=== PATIENT | male | born 1960 | race Caucasian/White ===

== ENCOUNTER 2020-03-04 18:37 | Emergency (ER) | payer MEDICARE, SELFPAY ==
--- NOTE | ~2020-03-04 | XR_ITS ---
XR finger 2nd LT min 2V DATE: 03/04/2020 19:08 INDICATION: Ran tablesaw vertically through the distal second digit TECHNIQUE: 4 views COMPARISON: None FINDINGS: There is a comminuted fracture of the tuft of the distal phalanx of the second digit. There are some tuft fracture fragments and/or radial opaque foreign bodies extending distally lateral to t he tuft. There are osteoarthritic changes at the first carpometacarpal and included first through third metaca rpophalangeal and both interphalangeal joints of the second digit. IMPRESSION: Comminuted fracture of the tuft of the distal phalanx Polyarticular osteoarthritis Reviewed, dictated and finalized at location A.
[2020-03-04 18:51] VITALS: BP 157/105; PULSE 68; RESP 16; TEMP 37.1; O2SAT 99
--- NOTE | 2020-03-04 19:26 | ED.WOUNDLAC ---
HPI - Wound/Laceration General Chief Complaint: Wound/Laceration Stated Complaint: laceration left index finger Time Seen by Provider: 03/04/20 19:15 Source: patient and RN notes reviewed Mode of arrival: ambulatory Limitations: no limitations History of Present Illness HPI narrative: 59-year-old male presents with concern for laceration to the second digit of his left hand. Reports he sustained the injury using a saw prior to arrival. Patient has history of osteomyelitis, malignant neoplasm of esophagus, is currently on chemotherapy. Patient is not up-to-date on his tetanus vaccination Extremity Location: Left: hand Related Data Home Medications Medication Instructions Recorded Confirmed lorazepam 03/04/20 pembrolizumab [Keytruda] 200 mg IV ONCE 03/04/20 03/04/20 rivaroxaban [Xarelto] mg 03/04/20 Allergies Allergy/AdvReac Type Severity Reaction Status Date / Time morphine Allergy Intermediate Nausea Verified 05/10/19 10:20 Review of Systems Review of Systems: Narrative: CONSTITUTIONAL: Denies malaise, chills, sweats, or fever. SKIN: Reports laceration to the tip of the second digit of the left hand MUSCULOSKELETAL: Reports pain to the tip of the second digit of left hand All systems reviewed & are unremarkable except as noted in HPI and below PMFSH Past Medical History Medical History Osteomyelitis of low back Family History Family History (Updated 07/04/17 @ 13:10 by DOCTOR UNKNOWN) Mother Patient's mother is in good health Sibling Patient's sister is in good health Father Family history of lupus erythematosus Social History Social History Smoking status: Former smoker Second hand tobacco smoke exposure: No Smoking end date: 07/02/89 Alcohol intake: current Comments At time of signature, agree with nursing past medical, surgical, social and family history. There is no relevant family history pertinent to the presenting complaint Exam Narrative: Exam Narrative: GENERAL: Well-appearing, well-nourished, and in no acute distress. HEAD: Normocephalic EYES: PERRLA, conjunctivae clear ENT: Mucous membranes moist. NECK: Supple. CHEST: No respiratory distress. Speaks in full sentences. HEART: Regular rate and rhythm. EXTREMITIES: Second digit of left hand has grossly normal range of motion SKIN: Warm, dry. Laceration noted to the distal end of the second digit of the left hand, involving nailbed, wound appears to be through and through. NEURO: Alert and oriented x3. PSYCH: Normal mood and affect Course Course Emergency Course: Patient is aware of diagnosis, understands and agrees to treatment plan. Anticipatory guidance given. Patient agrees to follow-up as directed and is aware of reasons to seek care at the emergency department. Portions of this record may have been created with voice recognition software Vital Signs Vital signs: Vital Signs Temperature 98.8 F 03/04/20 18:51 Pulse Rate 68 03/04/20 18:51 Respiratory Rate 16 03/04/20 18:51 Blood Pressure 157/105 H 03/04/20 18:51 Pulse Oximetry 99 03/04/20 18:51 Temperature 98.8 F 03/04/20 18:51 Pulse Rate 68 03/04/20 18:51 Respiratory Rate 16 03/04/20 18:51 Blood Pressure 157/105 H 03/04/20 18:51 Pulse Oximetry 99 03/04/20 18:51 Reviewed. Patient has history of hypertension Transfer Transfered to: [place] Transportation: Other (Private vehicle) Transfer rationale: Open fracture, immunocompromise, complicated laceration Accepting physician: Dr. Haynes Transfer comments: Patient stable for transfer via private vehicle MDM - Wound/Laceration MDM Narrative Medical decision making narrative: This patient's injury requires further evaluation emergency department. Patient is stable for transfer private vehicle, patient is nontoxic-appearing. Critical Care Time Critical Care Time Critical Care Time: No Discharge Plan D
== END 2020-03-04 19:34 | disposition short-term general hospital (02) ==
PROVIDERS: Emergency Provider Nurse Practitioner; PCP Internal Medicine
DX: S62.631B Displaced fracture of distal phalanx of left index finger, initial encounter for open fracture (principal); W27.0XXA Contact with workbench tool, initial encounter; Z87.891 Personal history of nicotine dependence; M46.26 Osteomyelitis of vertebra, lumbar region; C15.9 Malignant neoplasm of esophagus, unspecified; I10 Essential (primary) hypertension; K21.9 Gastro-esophageal reflux disease without esophagitis
CPT/HCPCS: 29130; 73140; 99214; G0463

== ENCOUNTER 2020-03-04 19:55 | Emergency (ER) | payer MEDICARE, SELFPAY ==
[2020-03-04 20:02] VITALS: BP 178/103; PULSE 64; RESP 17; TEMP 36.8; O2SAT 99
[2020-03-04] MEDS: TETANUS,DIPHTHERIA,AC PERTUSSIS ADULT (0.5 ML) BOOSTRIX IM (20:25)
[2020-03-04] MEDS: ceFAZolin SODIUM 1 GM VIAL IM (20:26)
--- NOTE | 2020-03-04 20:41 | ED.UPPEXIN ---
HPI - Extremity Injury (Upper) General Chief Complaint: Extremity Injury, Upper <GRAEME Montana Last Filed: 03/04/20 21:05> Stated Complaint: laceration, possible open fracture <GRAEME Montana Last Filed: 03/04/20 21:05> Time Seen by Provider: 03/04/20 20:08 <GRAEME Montana Last Filed: 03/04/20 21:05> Source: patient, family and old records reviewed <GRAEME Montana Last Filed: 03/04/20 21:05> Mode of arrival: ambulatory <GRAEME Montana Last Filed: 03/04/20 21:05> Limitations: no limitations <GRAEME Montana Filed: 03/04/20 21:05> History of Present Illness HPI narrative: Patient is a 59-year-old male who presents to emergency department for evaluation of tablesaw injury to the distal tip of the left index finger that occurred earlier today went to urgent care was referred to emergency department patient is unsure as to tetanus status patient did have an x-ray revealing a tuft fracture patient notes moderate aching pain worse with touch improves with rest patient denies other injuries or complaints and on arrival is resting comfortably in the room in no distress <GRAEME Montana Last Filed: 03/04/20 21:05> Related Data Home Medications: Home Medications Medication Instructions Recorded Confirmed lorazepam 03/04/20 pembrolizumab [Keytruda] 200 mg IV ONCE 03/04/20 03/04/20 rivaroxaban [Xarelto] mg 03/04/20 <GRAEME Montana Last Filed: 03/04/20 21:05> Allergies/Adverse Reactions: Allergies Allergy/AdvReac Type Severity Reaction Status Date / Time morphine Allergy Intermediate Nausea Verified 05/10/19 10:20 <GRAEME Montana Last Filed: 03/04/20 21:05> Review of Systems Review of Systems: All systems reviewed & are unremarkable except as noted in HPI and below <GRAEME Montana Last Filed: 03/04/20 21:05> PMFSH Past Medical History Medical History: Medical History Osteomyelitis of low back <Channing Islas PA-C - Last Filed: 03/04/20 21:05> Family History Family History: Family History (Updated 07/04/17 @ 13:10 by DOCTOR UNKNOWN) Mother Patient's mother is in good health Sibling Patient's sister is in good health Father Family history of lupus erythematosus <Channing Islas PA-C - Last Filed: 03/04/20 21:05> Social History Social History: Social History Smoking status: Former smoker Second hand tobacco smoke exposure: No Smoking end date: 07/02/89 Alcohol intake: current <Channing Islas PA-C - Last Filed: 03/04/20 21:05> Exam Narrative: Exam Narrative: GENERAL: Well-appearing, well-nourished, and in no acute distress. HEAD: Normocephalic, atraumatic. EYES: PERRLA and EOMI. ENT: Nares clear, no rhinorrhea or epistaxis. Mucous membranes moist. EXTREMITIES: Normal range of motion. No edema. 1 cm vertical laceration of the distal tip of the left index finger extending into the distal third of the nailbed SKIN: Warm, dry, no rash. NEURO: No focal deficits. Alert and oriented x3. Neurovascularly intact PSYCH: Normal mood and affect. <Channing Islas PA-C - Last Filed: 03/04/20 21:05> Course Course Emergency Course: Patient in the room aware of discussion with hand surgeon closure in the emergency department agreeing to follow with hand surgery for reevaluation was given tetanus and antibiotic in the emergency department <Channing Islas PA-C - Last Filed: 03/04/20 21:05> Consultations Consultation #1: Discussed case with hand surgeon who will follow patient in clinic <Channing Islas PA-C - Last Filed: 03/04/20 21:05> Date: 03/04/20 <Channing Islas PA-C - Last Filed: 03/04/20 21:05> Time: 20:44 <Channing Islas PA-C - Last Filed: 03/04/20 21:05> Vital
[2020-03-04 21:15] VITALS: BP 175/102; PULSE 62; RESP 18; O2SAT 98
== END 2020-03-04 21:15 | disposition home or self-care (01) ==
PROVIDERS: Emergency Provider General Practice; PCP Internal Medicine
DX: S62.631B Displaced fracture of distal phalanx of left index finger, initial encounter for open fracture (principal); Z23 Encounter for immunization; Z87.891 Personal history of nicotine dependence; W31.2XXA Contact with powered woodworking and forming machines, initial encounter
CPT/HCPCS: 11760; 12001; 73140; 90471; 90715; 96372; 99283; A9270; J0690

== ENCOUNTER 2020-09-13 10:02 | Outpatient (CLI) | payer MEDICARE, SELFPAY | END 2020-09-13 10:03 | disposition home or self-care (01) | LOC: ANHCOVIDVC 10:02 | PROVIDERS: PCP Internal Medicine | DX: Z23 Encounter for immunization (principal) | CPT/HCPCS: 0001A; 91300 ==

== ENCOUNTER 2020-10-04 09:53 | Outpatient (CLI) | payer MEDICARE, SELFPAY | END 2020-10-04 09:54 | disposition home or self-care (01) | LOC: ANHCOVIDVC 09:53 | PROVIDERS: PCP Internal Medicine | DX: Z23 Encounter for immunization (principal) | CPT/HCPCS: 0002A; 91300 ==

== ENCOUNTER 2023-12-13 11:36 | Inpatient (IN) | payer MEDICARE, SELFPAY ==
--- NOTE | ~2023-12-13 | XR_ITS ---
Clinical Indication: Weakness AP and lateral views of the chest: Comparison: None Findings: Right-sided central venous line in place. Left-sided PICC line in place. The lungs are yessica r, without evidence of focal consolidation or pleural effusion. Cardiomediastinal silhouette is with in normal limits. Bones and soft tissues are unremarkable. Impression: Clear lungs. Support lines, as above. Reviewed, dictated and finalized at location M. Impression: Clear lungs. Support lines, as above.
--- NOTE | ~2023-12-13 | XR_ITS ---
XR abdomen/kub 1V Ordering provider: Christina Spears APRN History: . pain LLQ . Comparison: None. FINDINGS: BOWEL: Nonobstructive bowel gas pattern. ORGANOMEGALY: None. SIGNIFICANT PATHOLOGIC CALCIFICATIONS: Very tiny calcification in the right renal area most likely in the fecal material. OTHER: No free air is seen under the diaphragm. Postoperative changes in the lower spine. IVC filter is noted. Bilateral hip was discussed changes. IMPRESSION: NO ACUTE ABDOMINAL FINDINGS. Reviewed, dictated and finalized at location A.
[2023-12-13 11:38] VITALS: BP 100/80; PULSE 85; RESP 18; TEMP 36.4; O2SAT 100
--- NOTE | 2023-12-13 11:52 | ECG_ITS ---
Test Date: 2023-12-13 11:59:14 Measurements Intervals [place] Rate: 85 P: 67 ID: [id number] QRS: -16 QRSD: 76 T: 42 QT: 340 QTc: 406 Interpretive Statements SINUS RHYTHM No previous ECG available for comparison Electronically Signed On 12-15-2023 15:40:36 CDT by Carlitos Tapia M.D.
--- NOTE | 2023-12-13 13:27 | ED.GENADULT ---
HPI - General Adult General Chief complaint: Unspecified Stated complaint: malnutrition, deydration, dizziness Time Seen by Provider: 12/13/23 12:45 History of Present Illness HPI narrative: Patient is a 62-year-old male with history of esophageal cancer status post resection, metastasis to the colon status post resection after perforation, diagnose short gut syndrome here with concern for malnutrition and dehydration. Patient notes that all of his care has [facility] to [facility] Aside from his primary care doctor who is through our healthcare system. He was recently admitted to [facility] for dehydration and malnutrition. He was admitted from November 08 through the , was on TPN at that time as well as IV fluids. At discharge she was placed on hospice and he has been getting only 1 L of IV fluids throughout the day. The family and the patient had been having difficulty with him getting the proper TPN orders and having difficulty with coverage for lab work while he is on hospice. They note that since November 28 he has steadily declined each day because everything he takes by mouth quickly comes out in his stool. Yesterday they size primary care doctor who recommended that he could be admitted to the hospital, taken off of hospice and prescribed TPN. In addition to his generalized weakness and fatigue patient endorses some intermittent chronic abdominal pains thought to be due to his cancer. No recent change in this. No fever or chills. He is not currently receiving chemo or radiation. Related Data Home Medications Medication Instructions Recorded Confirmed rivaroxaban 20 mg tablet (Xarelto) mg 03/04/20 09/19/23 ascorbic acid (vitamin C) 1,000 mg 1 g PO DAILY 11/17/22 09/19/23 capsule cholecalciferol (vitamin D3) 50 50 mcg PO DAILY 11/17/22 09/19/23 mcg (2,000 unit) capsule ferrous sulfate 325 mg (65 mg 325 mg PO DAILY 11/17/22 09/19/23 iron) tablet amino acid 5 % in 15 % dextrose ea IV 12/12/23 intravenous solution (Clinimix) duloxetine 60 mg capsule,delayed 60 mg PO DAILY 12/12/23 release Allergies Allergy/AdvReac Type Severity Reaction Status Date / Time morphine Allergy Intermediate Nausea Verified 12/12/23 12:50 Review of Systems Review of Systems: All systems reviewed & are unremarkable except as noted in HPI and below PMFSH Past Medical History Medical History VEDA (acute kidney injury) DVT, bilateral lower limbs Essential (primary) hypertension Gastro-esophageal reflux disease without esophagitis Malignant neoplasm of esophagus mets to colon Osteomyelitis of low back Short gut syndrome Vitamin D deficiency Surgical History Surgical History History of colectomy (08/2023) History of esophagectomy (2017) History of ileostomy (08/2023) Family History Family History Mother Patient's mother is in good health Sibling Patient's sister is in good health Father Family history of lupus erythematosus Social History Social History Smoking packs per day: 1 Smoking cigarettes per day: 20.0 Years smoked: 3 Smoking pack-years: 3.00 Smoking status: Former smoker Second hand tobacco smoke exposure: No Smoking end date: 07/02/89 Alcohol intake: never Substance use: never Do You Feel Safe in your Home?: Yes Lack of Transportation: No Lack of Food: Never True Current Housing: I Have Housing Concerned About Future Housing: No Difficulty Paying Gas/Electric Bills: No Difficulty Paying for Meds: No Currently Unemployed: No Education: High School Diploma/GED Difficulty w/ Childcare or Family Care: No Spiritual care concerns: No Exam Narrative: GENERAL: Well-appearing, well-nouris
[2023-12-13] MEDS: LACTATED RINGERS 1,000 ML 999 ML IV CONT ×3 (13:46→17:48)
[2023-12-13 13:52] VITALS: O2SAT 98
[2023-12-13 13:53] LABS: Basophils Absolute Auto 0.1 K/mm3 (0.0-0.1); Basophils Percent Auto 0.5 % (0.2-1.2); Eosinophils Absolute Auto 0.1 K/mm3 (0-0.3); Hematocrit 42.7 % (42.0-52.0); Hemoglobin 14.9 g/dL (14.0-18.0); Immature Granulocyte Absolute 0.04 K/mm3 (0.00-0.031); Immature Granulocyte Percent A 0.3 % (0-0.5); Lymphocytes Absolute Auto 0.65 K/mm3 (0.9-3.2); Mean Corpuscular HGB Conc 34.9 g/dl (32-36); Mean Corpuscular Hemoglobin 30.7 pg (26-34); Mean Corpuscular Volume 87.9 fl (80-100); Mean Platelet Volume 11.4 fl (7.4-10.4); Monocytes Absolute Auto 0.9 K/mm3 (0.1-0.6); Neutrophils Absolute Auto 11.2 K/mm3 (1.3-6.7); Neutrophils Percent Auto 86.2 % (45.5-73.1); Platelet Count Result 167 k/mm3 (150-375); Red Blood Count 4.86 M/mm3 (4.6-6.20); Red Cell Distribution Width 17.8 % (11.5-14.5)
[2023-12-13 13:57] VITALS: BP 100/73; PULSE 81; RESP 17; TEMP 37.1; O2SAT 98
[2023-12-13 13:59] LABS: Appearance Urine Clear (Clear); Bacteria Urine None Seen /hpf; Bilirubin Urine Negative (Negative); Blood Urine Negative (Negative); Color Urine Yellow (Yellow); Glucose Urine UA Trace mg/dL (Negative); Ketones Urine Negative (Negative); Leukocyte Esterase Ur Negative LEU/UL (Negative); Nitrate Urine Negative (Negative); Protein Urine 1+ mg/dL (Negative); RBC Urine 0-2 /hpf (0-2); Specific Grav Ur 1.019 (1.001-1.035); Squamous Epithelial Cell Urine Occasional /hpf (Few); Urobilinogen Urine 0.2 mg/dL (<2.0); WBC Urine 0-5 /hpf (0-3); pH Urine 5.5 (5.0-9.0)
[2023-12-13 14:08] LABS: Add Urine Microscopic? YES
[2023-12-13 15:42] LABS: Alanine Aminotransferase 172 U/L (6-50); Albumin Level 3.7 g/dL (3.5-5.1); Alkaline Phosphatase 163 U/L (38-126); Anion Gap 7 mmol/L (4-12); Aspartate Amino Transferase 69 U/L (17-59); Bilirubin,Total 1.7 mg/dL (0.2-1.3); Blood Urea Nitrogen 60 mg/dL (9-20); Calcium 9.8 mg/dL (8.4-10.2); Carbon Dioxide 29 mmol/L (22-30); Chloride 92 mmol/L (98-107); Estimated CRCL calculation 35 ml/min; Estimated Glomerular Filt Rate 34; Glucose 84 mg/dL (65-110); Magnesium 2.3 mg/dL (1.6-2.3); Sodium 128 mmol/L (137-145)
--- NOTE | 2023-12-13 18:34 | PCCCNOTE ---
Addendum entered by Christina Han RN 12/13/23 19:11: Pt and spouse informed of hospice coming to have them sign revocation paperwork and they aggreed that is what they would like to do. Dr Truong informed of their decision to revoke hospice and would like to proceed with treatment. Original Note: Referral received for consult. Met with pt and spouse. They state he is current with [facility] hospice and palliative care. He has a line through which he is receiving TPN but the formula isn't what it was when he was in the hospital in [facility]. When he received that, he became much stronger an that's what they would like him to receive. On hospice, he does not get labwork done so they can't adjust the formula to his needs. He has a scan scheduled for ffirst part of December and they plan to have that and follow up with the oncologist for those results. Call placed to [facility] hospice and message left Madonna the palliative nurse. Hospice returned call and they confirmed he is on service with them. Informed them pt may be revoking hospice benefits. They will have someone come here to have pt sign. No return call from Madonna received.
--- NOTE | 2023-12-13 19:42 | PM.IMHP ---
H&P: HPI History of Present Illness Date/Time: 12/13/23 19:42 Chief Complaint: Malnutrition and Dehydration Narrative: 62 y/o M presents here with concerns for dehydration and malnutrition with PMH of esophageal cancer (s/p resection, 2018) with met/mass to mesentery (s/p resection with ileostomy, 08/2023, 200 cm of bowel proximal to stoma), short gut syndrome (secondary to resection), DVTs on Xarelto, bacteremia (08/2023), HTN (resolved with ileostomy), osteomyelitis L5, and severe chronic malnutrition. The patient presents here from home for further evaluation of severe/chronic malnutrition and concern for current dehydration. Patient has history of metastatic esophageal cancer s/p esophagectomy in 2017 and mesenteric mass (esophageal met) that resulted in a small bowel perforation in August of 2023 with ileostomy creation. Subsequently developed short-gut syndrome. Most recently admitted from 11/13-11/18 at [facility] for increased ileostomy output, dehydration, and generalized weakness. Per discharge summary, patient was sent home on hospice with TPN and telephonic nurse case manager/hospice team was meant to arrange for TPN outpatient. Per PCP note on 12/12/2023, he has been receiving 1L of TPN daily but felt he was continuing to become more dehydrated, had recurrent VEDA, and fatigue was worsening. Per the patient and his family, they have been having difficulty obtaining the proper TPN order is and obtaining lab work outpatient due to hospice status. The patient reports the difficulty with the TPN is finding a provider to continue to write the orders for the TPN. Recently requested an increase in caloric total for TPN due to continuing to lose weight, TPN company would not increase the amount unless blood work was performed once weekly, but hospice will not cover lab work and reported he would have to pay for it [id number]. Patient still trying to eat 3 meals per day. Patient is no longer receiving chemo or radiation, last treatment in October of 2022. The patient reports his goal is get enough calories to be able to enjoy activities at home and do normal ADLs. No blood in output and varies in color dependent on diet. Initial VS at presentation: 97.6? F, HR 85, RR 18, 100/80, and 100% on RA. ED workup showed: WBC 13, sodium 128, creatinine 2.0 and GFR 34, total bilirubin/AST/ALT mildly elevated, and UA not consistent with UTI. CXR showed clear lungs and support lines visualized, see report. Review of Systems Review of Systems: All systems reviewed & are unremarkable except as noted in HPI and below PMFSH Past Medical History Medical History (Updated 12/13/23 @ 22:59 by Caitlin Womack APRN) VEDA (acute kidney injury) DVT, bilateral lower limbs Essential (primary) hypertension Gastro-esophageal reflux disease without esophagitis Malignant neoplasm of esophagus mets to colon Osteomyelitis of low back Short gut syndrome Small bowel perforation Vitamin D deficiency Surgical History Surgical History (Updated 12/13/23 @ 23:49 by Caitlin Womack APRN) History of back surgery History of esophagectomy (2017) History of ileostomy (08/2023) Family History Family History Mother Patient's mother is in good health Sibling Patient's sister is in good health Father Family history of lupus erythematosus Social History Social History Smoking packs per day: 1 Smoking cigarettes per day: 20.0 Years smoked: 3 Smoking pack-years: 3.00 Smoking status: Former smoker Second hand tobacco smoke exposure: No Smoking end date: 07/02/89 Alcohol intake: never Substance use: never Do You Feel Safe in your Home?: Yes Lack of Transportation: No Lack of Food: Never True Current Housing: I Have Housing Concerned About Future Housing: No Difficulty Paying Gas/Electric Bills: No Difficulty Paying for Meds:
[2023-12-13 20:35] VITALS: BP 116/89; PULSE 99; RESP 18; O2SAT 100
[2023-12-13 21:01] VITALS: PULSE 78; RESP 16; O2SAT 100
[2023-12-13 21:05] VITALS: BP 140/84; PULSE 78; RESP 16; TEMP 36.1; O2SAT 100; BMI 22.4
[2023-12-13] MEDS: AMINO ACIDS 5%/D15W/E-LYTES/CA 2,000 ML with MULTIVITAMINS-12 INJ VIAL 1 2.5 ML, MULTIV... 40 ML IV CONT (22:07)
[2023-12-13 23:28] LABS: Glucose Point of Care 130 mg/dl (65-105)
[2023-12-14 05:17] VITALS: BP 109/76; PULSE 66; RESP 18; TEMP 36.2; O2SAT 100
[2023-12-14 05:38] LABS: Glucose Point of Care 109 mg/dl (65-105)
--- NOTE | 2023-12-14 07:29 | PM.IMPN ---
Progress Note: A&P Assessment and Plan (1) Severe protein-calorie malnutrition: Code(s): E43 - Unspecified severe protein-calorie malnutrition Status: Acute Assessment and Plan: - consult to gas producer - albumin 3.7 - continue TPN: previously on Clinimix 2L 11/13 w/electrolytes + 250 mL of 20% ILE, run over 24 hrs. will continue similar. - glucose monitoring q.6 12/13: Increase TPN to 60 mils per hour per Nutrition. Added lipids. Blood sugars reviewed. I spoke with Dr Cason who is willing to write for outpatient TPN IF PCP is unable to follow. 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 Qualified Code(s): K90.822 - Short bowel syndrome without colon in continuity Code(s): K90.829 - Short bowel syndrome, unspecified Status: Acute Assessment and Plan: - dehydration secondary to short gut syndrome - given 3 L of LR - monitor K and Mag - continue Lomotil, Imodium, and tincture of opium (previously cost prohibitive to continue outpatient) to reduce high output, previously tolerated well at [facility] d/c'd - patient reports they have trialed this 2-3 times and it did not help - consider GI consult and octreotide if output increases - monitor I&Os 12/13: 900 ml of stool output in the last 24 hours. Blood pressures are stable. Sodium is up trending, K+ 3.7, Mag 2.3. LLQ abdominal pain today. KUB ordered. (3) VEDA (acute kidney injury): Code(s): N17.9 - Acute kidney failure, unspecified Status: Acute Assessment and Plan: - creatinine 2.0 and GFR 34 - previously 0.9 and GFR 106 in 2021 - recent VEDA 11/14/23-11/19/23, peak at 2.8 and discharged at 1.0 - IV fluids, treat underlying short gut/high output from ileostomy - trend renal function - trend electrolytes, correct as needed 12/13: Cr improving with current treatment. (4) Malignant neoplasm of esophagus: Qualifiers: Malignant neoplasm of esophagus location: unspecified location Qualified Code(s): C15.9 - Malignant neoplasm of esophagus, unspecified Code(s): C15.9 - Malignant neoplasm of esophagus, unspecified Status: Acute Assessment and Plan: - on hospice, may be revoked due to current admission - care coordination consult for arrangement of TPN outpatient/current options - last chemo/radiation in October of 2022 - received Oncology care at [facility] Plan Patient here with recurrent dehydration, malnutrition, and VEDA. Recently admitted at [facility] from 11/13 to 11/18 for same. TPN supposed to be coordinated with hospice outpatient, having difficulty increasing the calories per back due to requiring lab work weekly. Patient amendable to being on palliative care and not on hospice care. Diet: TPN GI Prophylaxis: Not currently indicated DVT Prophylaxis: continue Xarelto Lines: Power Port to R chest, PICC line to LUE Code Status: DNR Subjective Date/time seen: 12/14/23 07:29 Interval history: 62 y/o M presents here with concerns for dehydration and malnutrition with PMH of esophageal cancer (s/p resection, 2017) with met/mass to mesentery (s/p resection with ileostomy, 08/2023, 200 cm of bowel proximal to stoma), short gut syndrome (secondary to resection), DVTs on Xarelto, bacteremia (08/2023), HTN (resolved with ileostomy), osteomyelitis L5, and severe chronic malnutrition. 12/13: Very pleasant gentleman here with dehydration. Labs are improving with hydration. Care coordination is looking for a provider to sign for his TPN at discharge. Patient reports no complaints to be but nursing contacted me after seeing him and he is saying he is having some LLQ abdominal pain. Will check a KUB. He has metastatic cancer and I suspect this is the source of his pain. Will add oxycodone for pain. Review of Systems Review of Systems: All systems reviewed & are unremarkable except as noted in HPI and below
[2023-12-14 09:20] VITALS: O2SAT 98
[2023-12-14] MEDS: FERROUS SULFATE 325 MG TABLET DR PO (09:52)
[2023-12-14] MEDS: CHOLECALCIFEROL 1,000 UNITS TABLET 2000 UNITS PO (09:52)
[2023-12-14] MEDS: ASCORBIC ACID 500 MG TABLET 1000 MG PO (09:52)
[2023-12-14] MEDS: DULoxetine HCL 60 MG CAPSULE.DR PO (09:52)
[2023-12-14 10:42] LABS: Magnesium 2.3 mg/dL (1.6-2.3)
[2023-12-14 10:42] LABS: Alanine Aminotransferase 148 U/L (6-50); Albumin Level 3.4 g/dL (3.5-5.1); Alkaline Phosphatase 124 U/L (38-126); Anion Gap 6 mmol/L (4-12); Aspartate Amino Transferase 59 U/L (17-59); Bilirubin,Total 1.6 mg/dL (0.2-1.3); Blood Urea Nitrogen 55 mg/dL (9-20); Calcium 9.6 mg/dL (8.4-10.2); Carbon Dioxide 30 mmol/L (22-30); Chloride 94 mmol/L (98-107); Estimated CRCL calculation 43 ml/min; Estimated Glomerular Filt Rate 41; Glucose 142 mg/dL (65-110); Potassium 3.7 mmol/L (3.4-5.0); Sodium 130 mmol/L (137-145)
[2023-12-14 11:11] LABS: Hematocrit 38.5 % (42.0-52.0); Hemoglobin 13.3 g/dL (14.0-18.0); Mean Corpuscular HGB Conc 34.5 g/dl (32-36); Mean Corpuscular Hemoglobin 30.7 pg (26-34); Mean Corpuscular Volume 88.9 fl (80-100); Mean Platelet Volume 10.7 fl (7.4-10.4); Platelet Count Result 173 k/mm3 (150-375); Red Blood Count 4.33 M/mm3 (4.6-6.20); White Blood Count 11.4 K/mm3 (4.5-10.0)
[2023-12-14 11:54] VITALS: BMI 22.4
[2023-12-14] MEDS: ACETAMINOPHEN 500 MG TABLET 1000 MG PO ×3 (12:04→23:56)
[2023-12-14] MEDS: FAT EMULSIONS IV 20% 250 ML 20.83 ML IVPB (13:14)
[2023-12-14 14:00] VITALS: BP 101/74; PULSE 100; RESP 18; TEMP 36.6; O2SAT 100
[2023-12-14] MEDS: RIVAROXABAN 20 MG TABLET PO (17:35)
[2023-12-14 22:00] VITALS: BP 100/69; PULSE 87; RESP 20; TEMP 36.8; O2SAT 100
[2023-12-14 22:20] LABS: Glucose Point of Care 172 mg/dl (65-105)
[2023-12-15] MEDS: ACETAMINOPHEN 500 MG TABLET 1000 MG PO ×2 (05:50→11:20)
[2023-12-15] MEDS: AMINO ACIDS 5%/D15W/E-LYTES/CA 2,000 ML with MULTIVITAMINS-12 INJ VIAL 1 2.5 ML, MULTIV... 40 ML IV CONT (05:50)
[2023-12-15 06:00] VITALS: BP 94/72; PULSE 74; RESP 16; TEMP 36.9; O2SAT 100
[2023-12-15 07:06] LABS: Alanine Aminotransferase 112 U/L (6-50); Albumin Level 3.3 g/dL (3.5-5.1); Alkaline Phosphatase 108 U/L (38-126); Anion Gap 6 mmol/L (4-12); Aspartate Amino Transferase 36 U/L (17-59); Bilirubin,Total 1.8 mg/dL (0.2-1.3); Blood Urea Nitrogen 51 mg/dL (9-20); Calcium 9.5 mg/dL (8.4-10.2); Carbon Dioxide 32 mmol/L (22-30); Chloride 92 mmol/L (98-107); Estimated CRCL calculation 41 ml/min; Estimated Glomerular Filt Rate 38; Glucose 106 mg/dL (65-110); Magnesium 2.1 mg/dL (1.6-2.3); Potassium 3.8 mmol/L (3.4-5.0); Sodium 130 mmol/L (137-145)
[2023-12-15 07:12] LABS: Hematocrit 37.6 % (42.0-52.0); Hemoglobin 13.1 g/dL (14.0-18.0); Mean Corpuscular HGB Conc 34.8 g/dl (32-36); Mean Corpuscular Hemoglobin 31.3 pg (26-34); Mean Corpuscular Volume 89.7 fl (80-100); Mean Platelet Volume 10.8 fl (7.4-10.4); Platelet Count Result 152 k/mm3 (150-375); Red Blood Count 4.19 M/mm3 (4.6-6.20); Red Cell Distribution Width 16.9 % (11.5-14.5); White Blood Count 13.6 K/mm3 (4.5-10.0)
[2023-12-15 07:42] LABS: Glucose Point of Care 116 mg/dl (65-105)
--- NOTE | 2023-12-15 07:54 | PM.IMPN ---
Progress Note: A&P Assessment and Plan (1) Severe protein-calorie malnutrition: Code(s): E43 - Unspecified severe protein-calorie malnutrition Status: Acute Assessment and Plan: - consult to production metal sprayer - albumin 3.7 - continue TPN: previously on Clinimix 2L 11/13 w/electrolytes + 250 mL of 20% ILE, run over 24 hrs. will continue similar. - glucose monitoring q.6 12/13: Increase TPN to 60 mils per hour per Nutrition. Added lipids. Blood sugars reviewed. I spoke with Dr Cason who is willing to write for outpatient TPN IF PCP is unable to follow. 12/14: Blood glucose reviewed. Added low dose sliding scale insulin Q 6 hours with Q 6 hour accu checks. 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 Qualified Code(s): K90.822 - Short bowel syndrome without colon in continuity Code(s): K90.829 - Short bowel syndrome, unspecified Status: Acute Assessment and Plan: - dehydration secondary to short gut syndrome - given 3 L of LR - monitor K and Mag - continue Lomotil, Imodium, and tincture of opium (previously cost prohibitive to continue outpatient) to reduce high output, previously tolerated well at [facility] d/c'd - patient reports they have trialed this 2-3 times and it did not help - consider GI consult and octreotide if output increases - monitor I&Os 12/13: 900 ml of stool output in the last 24 hours. Blood pressures are stable. Sodium is up trending, K+ 3.7, Mag 2.3. LLQ abdominal pain today. KUB ordered. 12/14: No output charted. Electrolytes reviewed. Na 130+, K+ 3.8, Mg 2.1. Blood pressures are low this morning 90/60's with increase in CR and increase in liver enzymes. Patient has short gut syndrome and cannot maintain his fluid and nutritional status with oral intake or even enteral nutrition alone. He requires IV fluids and TPN for nutritional and fluid needs. Unfortunately, given his cancer he has a poor prognosis with likely months to live. He will require TPN, fluids for the indefinite future for palliative nutrition. (3) VEDA (acute kidney injury): Code(s): N17.9 - Acute kidney failure, unspecified Status: Acute Assessment and Plan: - creatinine 2.0 and GFR 34 - previously 0.9 and GFR 106 in 2021 - recent VEDA 11/14/23-11/19/23, peak at 2.8 and discharged at 1.0 - IV fluids, treat underlying short gut/high output from ileostomy - trend renal function - trend electrolytes, correct as needed 12/13: Cr improving with current treatment. 12/14: TPN was running at 60 ml per hour. Blood pressures are decreased and his Cr is increasing. He will need an increase in fluid rate. I have bolused 1 L NS now and started him on NS at 40 ml per hour to make for a total of 60 ml per hour. (4) Malignant neoplasm of esophagus: Qualifiers: Malignant neoplasm of esophagus location: unspecified location Qualified Code(s): C15.9 - Malignant neoplasm of esophagus, unspecified Code(s): C15.9 - Malignant neoplasm of esophagus, unspecified Status: Acute Assessment and Plan: - on hospice, may be revoked due to current admission - care coordination consult for arrangement of TPN outpatient/current options - last chemo/radiation in October of 2022 - received Oncology care at [facility] 12/14: Added oxycodone for pain control. C/o of abdominal pain yesterday but no acute findings on exam or on KUB. Plan Patient here with recurrent dehydration, malnutrition, and VEDA. Recently admitted at [facility] from 11/13 to 11/18 for same. TPN supposed to be coordinated with hospice outpatient, having difficulty increasing the calories per back due to requiring lab work weekly. Patient amendable to being on palliative care and not on hospice care. Diet: TPN GI Prophylaxis: Not currently indicated DVT Prophylaxis: continue Xarelto--also has an IVC filter Lines: Power
[2023-12-15 08:47] LABS: Basophils Percent Auto 0.2 % (0.2-1.2); Eosinophils Absolute Auto 0.1 K/mm3 (0-0.3); Eosinophils Percent Auto 0.9 % (0-4.4); Immature Granulocyte Absolute 0.04 K/mm3 (0.00-0.031); Immature Granulocyte Percent A 0.3 % (0-0.5); Lymphocytes Percent Auto 4.4 % (18.3-44.2); Monocytes Absolute Auto 0.8 K/mm3 (0.1-0.6); Neutrophils Absolute Auto 11.9 K/mm3 (1.3-6.7); Neutrophils Percent Auto 88.2 % (45.5-73.1)
[2023-12-15] MEDS: DULoxetine HCL 60 MG CAPSULE.DR PO (10:47)
[2023-12-15] MEDS: ASCORBIC ACID 500 MG TABLET 1000 MG PO (10:47)
[2023-12-15] MEDS: CHOLECALCIFEROL 1,000 UNITS TABLET 2000 UNITS PO (10:48)
[2023-12-15] MEDS: SODIUM CHLORIDE 0.9% IV 1,000 ML 999 ML IV CONT (10:49)
[2023-12-15] MEDS: FERROUS SULFATE 325 MG TABLET DR PO (10:54)
[2023-12-15] MEDS: FAT EMULSIONS IV 20% 250 ML 20.83 ML IVPB (10:56)
[2023-12-15 10:59] VITALS: BP 102/76
[2023-12-15 11:33] LABS: Glucose Point of Care 119 mg/dl (65-105)
[2023-12-15] MEDS: SODIUM CHLORIDE 0.9% IV 1,000 ML 40 ML IV CONT (12:06)
[2023-12-15 14:00] VITALS: BP 104/67; PULSE 78; RESP 20; TEMP 36.4; O2SAT 100
[2023-12-15] MEDS: CENTRAL LINE FLUSH 10 ML IV PUSH ×3 (14:20→14:21)
[2023-12-15] MEDS: oxyCODONE HCL (*CRX) 5 MG TAB IR PO (16:00)
[2023-12-15 16:35] LABS: Glucose Point of Care 118 mg/dl (65-105)
[2023-12-15] MEDS: RIVAROXABAN 20 MG TABLET PO (17:31)
[2023-12-15 20:00] VITALS: PULSE 78; RESP 20; O2SAT 100
[2023-12-15] MEDS: oxyCODONE HCL (*CRX) 5 MG TAB IR 10 MG PO (20:18)
[2023-12-15 21:17] VITALS: BP 116/74; PULSE 86; RESP 20; TEMP 36.3; O2SAT 100
[2023-12-15 23:13] LABS: Glucose Point of Care 112 mg/dl (65-105)
[2023-12-16] MEDS: oxyCODONE HCL (*CRX) 5 MG TAB IR 10 MG PO ×3 (00:23→20:23)
[2023-12-16 05:09] LABS: Hematocrit 34.4 % (42.0-52.0); Hemoglobin 11.6 g/dL (14.0-18.0); Immature Platelet Fraction Pct 6.3 % (0.9-11.2); Mean Corpuscular HGB Conc 33.7 g/dl (32-36); Mean Corpuscular Hemoglobin 30.3 pg (26-34); Mean Corpuscular Volume 89.8 fl (80-100); Mean Platelet Volume 10.8 fl (7.4-10.4); Platelet Count Result 135 k/mm3 (150-375); Red Blood Count 3.83 M/mm3 (4.6-6.20); Red Cell Distribution Width 16.9 % (11.5-14.5); White Blood Count 11.5 K/mm3 (4.5-10.0)
[2023-12-16] MEDS: AMINO ACIDS 5%/D15W/E-LYTES/CA 2,000 ML with MULTIVITAMINS-12 INJ VIAL 1 2.5 ML, MULTIV... 40 ML IV CONT ×2 (05:30→22:05)
[2023-12-16 05:39] LABS: Alanine Aminotransferase 78 U/L (6-50); Alkaline Phosphatase 88 U/L (38-126); Anion Gap 4 mmol/L (4-12); Aspartate Amino Transferase 26 U/L (17-59); Bilirubin,Total 1.5 mg/dL (0.2-1.3); Blood Urea Nitrogen 44 mg/dL (9-20); Calcium 9.2 mg/dL (8.4-10.2); Carbon Dioxide 30 mmol/L (22-30); Chloride 96 mmol/L (98-107); Estimated CRCL calculation 52 ml/min; Estimated Glomerular Filt Rate 51; Glucose 96 mg/dL (65-110); Magnesium 2.1 mg/dL (1.6-2.3); Potassium 3.8 mmol/L (3.4-5.0); Sodium 130 mmol/L (137-145)
[2023-12-16] MEDS: CENTRAL LINE FLUSH 10 ML IV PUSH ×6 (05:57→20:23)
[2023-12-16 06:00] VITALS: BP 95/60; PULSE 63; RESP 20; TEMP 36.1; O2SAT 100
[2023-12-16 06:15] LABS: Glucose Point of Care 102 mg/dl (65-105)
--- NOTE | 2023-12-16 07:50 | P.PNIM_ITS ---
Progress Note: A&P Assessment and Plan (1) Severe protein-calorie malnutrition: Code(s): E43 - Unspecified severe protein-calorie malnutrition Status: Acute Assessment and Plan: - consult to florist designer - albumin 3.7 - continue TPN: previously on Clinimix 2L 11/13 w/electrolytes + 250 mL of 20% ILE, run over 24 hrs. will continue similar. - glucose monitoring q.6 12/13: Increase TPN to 60 mils per hour per Nutrition. Added lipids. Blood sugars reviewed. I spoke with Dr Cason who is willing to write for outpatient TPN IF PCP is unable to follow. 12/14: Blood glucose reviewed. Added low dose sliding scale insulin Q 6 hours with Q 6 hour accu checks. Hypoglycemia protocol ordered 12/15: Blood glucose reviewed, well controlled. 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 d/c'd - patient reports they have trialed this 2-3 times and it did not help - consider GI consult and octreotide if output increases - monitor I&Os 12/13: 900 ml of stool output in the last 24 hours. Blood pressures are stable. Sodium is up trending, K+ 3.7, Mag 2.3. LLQ abdominal pain today. KUB ordered. 12/14: No output charted. Electrolytes reviewed. Na 130+, K+ 3.8, Mg 2.1. Blood pressures are low this morning 90/60's with increase in CR and increase in liver enzymes. Patient has short gut syndrome and cannot maintain his fluid and nutritional status with oral intake or even enteral nutrition alone. He requires IV fluids and TPN for nutritional and fluid needs. Unfortunately, given his cancer he has a poor prognosis with likely months to live. He will require TPN, fluids for the indefinite future for palliative nutrition. 12/15: 2 L intake, output 1200 mils, net positive 866 ml. Renal function improving, liver enzymes down trending. (3) VEDA (acute kidney injury): Code(s): N17.9 - Acute kidney failure, unspecified Status: Acute Assessment and Plan: - creatinine 2.0 and GFR 34 - previously 0.9 and GFR 106 in 2021 - recent VEDA 11/14/23-11/19/23, peak at 2.8 and discharged at 1.0 - IV fluids, treat underlying short gut/high output from ileostomy - trend renal function - trend electrolytes, correct as needed 12/13: Cr improving with current treatment. 12/14: TPN was running at 60 ml per hour. Blood pressures are decreased and his Cr is increasing. He will need an increase in fluid rate. I have bolused 1 L NS now and started him on NS at 40 ml per hour to make for a total of 60 ml per hour. 12/15: Renal function improving after addition of IV fluids. Patient will likely require IV fluids at discharge in addition to his TPN to meet fluid needs. (4) Malignant neoplasm of esophagus: Qualifiers: Malignant neoplasm of esophagus location: unspecified location Qualified Code(s): C15.9 - Malignant neoplasm of esophagus, unspecified Code(s): C15.9 - Malignant neoplasm of esophagus, unspecified Status: Acute Assessment and Plan: - on hospice, may be revoked due to current admission - care coordination consult for arrangement of TPN outpatient/current options
[2023-12-16 10:05] VITALS: BP 107/79; PULSE 76
[2023-12-16] MEDS: FERROUS SULFATE 325 MG TABLET DR PO (10:10)
[2023-12-16] MEDS: CHOLECALCIFEROL 1,000 UNITS TABLET 2000 UNITS PO (10:11)
[2023-12-16] MEDS: oxyCODONE HCL (*CRX) 5 MG TAB IR PO ×2 (10:11→17:18)
[2023-12-16] MEDS: DULoxetine HCL 60 MG CAPSULE.DR PO (10:11)
[2023-12-16] MEDS: ASCORBIC ACID 500 MG TABLET 1000 MG PO (10:11)
[2023-12-16] MEDS: FAT EMULSIONS IV 20% 250 ML 20.83 ML IVPB (10:12)
[2023-12-16 12:14] LABS: Glucose Point of Care 129 mg/dl (65-105)
[2023-12-16] MEDS: SODIUM CHLORIDE 0.9% IV 1,000 ML 40 ML IV CONT (13:44)
[2023-12-16 14:00] VITALS: BP 102/67; PULSE 65; RESP 16; TEMP 36.2; O2SAT 100
[2023-12-16] MEDS: RIVAROXABAN 20 MG TABLET PO (17:18)
[2023-12-16 18:33] LABS: Glucose Point of Care 143 mg/dl (65-105)
[2023-12-16 20:00] VITALS: PULSE 88; RESP 18; O2SAT 100
[2023-12-16 20:53] VITALS: BP 109/70; PULSE 88; RESP 18; TEMP 36.5; O2SAT 100
[2023-12-16 22:52] LABS: Glucose Point of Care 132 mg/dl (65-105)
[2023-12-16 22:52] LABS: Glucose Point of Care 157 mg/dl (65-105)
[2023-12-17] MEDS: oxyCODONE HCL (*CRX) 5 MG TAB IR 10 MG PO ×4 (00:30→22:18)
[2023-12-17 05:13] LABS: Glucose Point of Care 110 mg/dl (65-105)
[2023-12-17 05:34] LABS: Hematocrit 32.7 % (42.0-52.0); Hemoglobin 11.2 g/dL (14.0-18.0); Immature Platelet Fraction Pct 5.9 % (0.9-11.2); Mean Corpuscular HGB Conc 34.3 g/dl (32-36); Mean Corpuscular Hemoglobin 30.9 pg (26-34); Mean Corpuscular Volume 90.3 fl (80-100); Mean Platelet Volume 10.6 fl (7.4-10.4); Platelet Count Result 133 k/mm3 (150-375); Red Blood Count 3.62 M/mm3 (4.6-6.20); Red Cell Distribution Width 16.9 % (11.5-14.5)
[2023-12-17 05:35] LABS: Alanine Aminotransferase 64 U/L (6-50); Albumin Level 2.9 g/dL (3.5-5.1); Alkaline Phosphatase 84 U/L (38-126); Anion Gap 4 mmol/L (4-12); Aspartate Amino Transferase 25 U/L (17-59); Bilirubin,Total 1.5 mg/dL (0.2-1.3); Blood Urea Nitrogen 36 mg/dL (9-20); Calcium 9.2 mg/dL (8.4-10.2); Carbon Dioxide 29 mmol/L (22-30); Chloride 99 mmol/L (98-107); Estimated CRCL calculation 60 ml/min; Estimated Glomerular Filt Rate > 60; Glucose 110 mg/dL (65-110); Potassium 3.9 mmol/L (3.4-5.0); Sodium 132 mmol/L (137-145)
[2023-12-17] MEDS: CENTRAL LINE FLUSH 10 ML IV PUSH ×4 (05:44→13:39)
[2023-12-17 06:00] VITALS: BP 95/58; PULSE 61; RESP 20; TEMP 36.1; O2SAT 100
[2023-12-17] MEDS: oxyCODONE HCL (*CRX) 5 MG TAB IR PO (08:32)
[2023-12-17] MEDS: FAT EMULSIONS IV 20% 250 ML 20.83 ML IVPB (08:32)
[2023-12-17] MEDS: CHOLECALCIFEROL 1,000 UNITS TABLET 2000 UNITS PO (08:33)
[2023-12-17] MEDS: DULoxetine HCL 60 MG CAPSULE.DR PO (08:33)
[2023-12-17] MEDS: ASCORBIC ACID 500 MG TABLET 1000 MG PO (08:33)
[2023-12-17] MEDS: FERROUS SULFATE 325 MG TABLET DR PO (08:33)
[2023-12-17 11:35] LABS: Glucose Point of Care 129 mg/dl (65-105)
[2023-12-17 14:00] VITALS: BP 101/52; PULSE 78; RESP 18; TEMP 36.5; O2SAT 99
--- NOTE | 2023-12-17 14:08 | PM.IMPN ---
Progress Note: A&P Assessment and Plan (1) Severe protein-calorie malnutrition: Code(s): E43 - Unspecified severe protein-calorie malnutrition Status: Acute Assessment and Plan: - consult to high school vice principal - albumin 3.7 - continue TPN: previously on Clinimix 2L 11/13 w/electrolytes + 250 mL of 20% ILE, run over 24 hrs. will continue similar. - glucose monitoring q.6 12/13: Increase TPN to 60 mils per hour per Nutrition. Added lipids. Blood sugars reviewed. I spoke with Dr Cason who is willing to write for outpatient TPN IF PCP is unable to follow. 12/14: Blood glucose reviewed. Added low dose sliding scale insulin Q 6 hours with Q 6 hour accu checks. Hypoglycemia protocol ordered 12/15: Blood glucose reviewed, well controlled. 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 Qualified Code(s): K90.822 - Short bowel syndrome without colon in continuity Code(s): K90.829 - Short bowel syndrome, unspecified Status: Acute Assessment and Plan: - dehydration secondary to short gut syndrome - given 3 L of LR - monitor K and Mag - continue Lomotil, Imodium, and tincture of opium (previously cost prohibitive to continue outpatient) to reduce high output, previously tolerated well at [facility] d/c'd - patient reports they have trialed this 2-3 times and it did not help - consider GI consult and octreotide if output increases - monitor I&Os 12/13: 900 ml of stool output in the last 24 hours. Blood pressures are stable. Sodium is up trending, K+ 3.7, Mag 2.3. LLQ abdominal pain today. KUB ordered. 12/14: No output charted. Electrolytes reviewed. Na 130+, K+ 3.8, Mg 2.1. Blood pressures are low this morning 90/60's with increase in CR and increase in liver enzymes. Patient has short gut syndrome and cannot maintain his fluid and nutritional status with oral intake or even enteral nutrition alone. He requires IV fluids and TPN for nutritional and fluid needs. Unfortunately, given his cancer he has a poor prognosis with likely months to live. He will require TPN, fluids for the indefinite future for palliative nutrition. 12/15: 2 L intake, output 1200 mils, net positive 866 ml. Renal function improving, liver enzymes down trending. (3) VEDA (acute kidney injury): Code(s): N17.9 - Acute kidney failure, unspecified Status: Acute Assessment and Plan: - creatinine 2.0 and GFR 34 - previously 0.9 and GFR 106 in 2021 - recent VEDA 11/14/23-11/19/23, peak at 2.8 and discharged at 1.0 - IV fluids, treat underlying short gut/high output from ileostomy - trend renal function - trend electrolytes, correct as needed 12/13: Cr improving with current treatment. 12/14: TPN was running at 60 ml per hour. Blood pressures are decreased and his Cr is increasing. He will need an increase in fluid rate. I have bolused 1 L NS now and started him on NS at 40 ml per hour to make for a total of 60 ml per hour. 12/15: Renal function improving after addition of IV fluids. Patient will likely require IV fluids at discharge in addition to his TPN to meet fluid needs. (4) Malignant neoplasm of esophagus: Qualifiers: Malignant neoplasm of esophagus location: unspecified location Qualified Code(s): C15.9 - Malignant neoplasm of esophagus, unspecified Code(s): C15.9 - Malignant neoplasm of esophagus, unspecified Status: Acute Assessment and Plan: - on hospice, may be revoked due to current admission - care coordination consult for arrangement of TPN outpatient/current options - last chemo/radiation in October of 2022 - received Oncology care at [facility] 12/14: Added oxycodone for pain control. C/o of abdominal pain yesterday but no acute findings on exam or on KUB. Plan Patient here with recurrent dehydration, malnutrition, and VEDA. Recently admitted at [facility] from 11/13 to 11/18 for same. TPN supposed to be
[2023-12-17] MEDS: SODIUM CHLORIDE 0.9% IV 1,000 ML 40 ML IV CONT (14:45)
[2023-12-17] MEDS: RIVAROXABAN 20 MG TABLET PO (16:06)
[2023-12-17 16:31] LABS: Triglycerides 61 mg/dL (<150)
[2023-12-17 18:43] LABS: Glucose Point of Care 131 mg/dl (65-105)
[2023-12-17 21:55] VITALS: BP 105/70; PULSE 81; RESP 18; TEMP 36.9; O2SAT 100
[2023-12-18] LABS: Glucose Point of Care 144 mg/dl (65-105)
[2023-12-18] MEDS: CENTRAL LINE FLUSH 10 ML IV PUSH ×6 (01:33→16:02)
[2023-12-18] MEDS: ACETAMINOPHEN 500 MG TABLET 1000 MG PO ×2 (05:50→12:33)
[2023-12-18 06:00] VITALS: BP 100/72; PULSE 64; RESP 18; TEMP 36.9; O2SAT 100
[2023-12-18 06:30] LABS: Hematocrit 31.1 % (42.0-52.0); Hemoglobin 10.5 g/dL (14.0-18.0); Mean Corpuscular HGB Conc 33.8 g/dl (32-36); Mean Corpuscular Hemoglobin 31.1 pg (26-34); Mean Platelet Volume 10.8 fl (7.4-10.4); Platelet Count Result 143 k/mm3 (150-375); Red Blood Count 3.38 M/mm3 (4.6-6.20); Red Cell Distribution Width 16.8 % (11.5-14.5); White Blood Count 8.6 K/mm3 (4.5-10.0)
[2023-12-18 06:47] LABS: Alanine Aminotransferase 59 U/L (6-50); Albumin Level 2.7 g/dL (3.5-5.1); Alkaline Phosphatase 95 U/L (38-126); Anion Gap 2 mmol/L (4-12); Aspartate Amino Transferase 46 U/L (17-59); Bilirubin,Total 1.6 mg/dL (0.2-1.3); Blood Urea Nitrogen 29 mg/dL (9-20); Calcium 9.1 mg/dL (8.4-10.2); Carbon Dioxide 30 mmol/L (22-30); Chloride 100 mmol/L (98-107); Estimated CRCL calculation 71 ml/min; Estimated Glomerular Filt Rate > 60; Glucose 102 mg/dL (65-110); Magnesium 1.9 mg/dL (1.6-2.3); Potassium 3.9 mmol/L (3.4-5.0); Sodium 132 mmol/L (137-145)
[2023-12-18 06:50] LABS: Glucose Point of Care 107 mg/dl (65-105)
[2023-12-18] MEDS: FAT EMULSIONS IV 20% 250 ML 20.83 ML IVPB (09:01)
[2023-12-18] MEDS: AMINO ACIDS 5%/D15W/E-LYTES/CA 2,000 ML with MULTIVITAMINS-12 INJ VIAL 1 2.5 ML, MULTIV... 40 ML IV CONT (09:01)
[2023-12-18] MEDS: DULoxetine HCL 60 MG CAPSULE.DR PO (09:02)
[2023-12-18] MEDS: FERROUS SULFATE 325 MG TABLET DR PO (09:02)
[2023-12-18] MEDS: CHOLECALCIFEROL 1,000 UNITS TABLET 2000 UNITS PO (09:02)
[2023-12-18] MEDS: ASCORBIC ACID 500 MG TABLET 1000 MG PO (09:02)
[2023-12-18] MEDS: oxyCODONE HCL (*CRX) 5 MG TAB IR PO (09:20)
--- NOTE | 2023-12-18 10:45 | PCNFU ---
Nutrition Follow-Up Complete: Severe protein calorie malnutrition related to altered GI function (malabsorption s/t short gut syndrome) as evidenced by weight loss 26%/1 year; intakes <75% needs >1 month; moderate muscle wasting to temporalis, clavicles; fat loss to buccal fat pads. Goal:Meet estimated protein energy needs Maintain weight Pt meeting goals at this time. Continue with same goals. Pt current nutrition is Regular diet, TPN Clinimix E 11/13 at 60ml/hr to provide 1522kcals, 72g protein. Nutrition recommendation: Continue with current plan of care Last recorded weight is 75.2 kg. Bowel Motility: +BM 12/17 Labs Reviewed: Hgb:10.5, HCT:31.1, Alb:2.7, NA:132, BUN:29, Glu:107 Meds Noted: heparin Skin: WNL Additional Notes: Pt on a regular diet with good intake at 50-75% however noted does not absorb much via gut. TPN running and meeting 80% of estimated energy needs and 100% of protein needs. Agree with orders. Monitoring weights, labs, TPN tolerance, PO intake, plan of care Follow Tuesdays and Fridays
[2023-12-18 12:22] LABS: Glucose Point of Care 118 mg/dl (65-105)
--- NOTE | 2023-12-18 14:34 | PM.DS ---
DS: Admitting Diagnosis Discharge Date 12/18/23 Admitting Diagnosis dehydration DS: Discharge Diagnosis Discharge Diagnosis (1) Severe protein-calorie malnutrition: Code(s): E43 - Unspecified severe protein-calorie malnutrition Status: Acute Assessment and Plan: - consult to commercial drafter - albumin 3.7 - continue TPN: previously on Clinimix 2L 11/13 w/electrolytes + 250 mL of 20% ILE, run over 24 hrs. will continue similar. - glucose monitoring q.6 12/13: Increase TPN to 60 mils per hour per Nutrition. Added lipids. Blood sugars reviewed. I spoke with Dr Cason who is willing to write for outpatient TPN IF PCP is unable to follow. 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 Qualified Code(s): K90.822 - Short bowel syndrome without colon in continuity Code(s): K90.829 - Short bowel syndrome, unspecified Status: Acute Assessment and Plan: - dehydration secondary to short gut syndrome - given 3 L of LR - monitor K and Mag - continue Lomotil, Imodium, and tincture of opium (previously cost prohibitive to continue outpatient) to reduce high output, previously tolerated well at [facility] d/c'd - patient reports they have trialed this 2-3 times and it did not help - consider GI consult and octreotide if output increases - monitor I&Os 12/13: 900 ml of stool output in the last 24 hours. Blood pressures are stable. Sodium is up trending, K+ 3.7, Mag 2.3. LLQ abdominal pain today. KUB ordered. (3) VEDA (acute kidney injury): Code(s): N17.9 - Acute kidney failure, unspecified Status: Acute Assessment and Plan: - creatinine 2.0 and GFR 34 - previously 0.9 and GFR 106 in 2021 - recent VEDA 11/14/23-11/19/23, peak at 2.8 and discharged at 1.0 - IV fluids, treat underlying short gut/high output from ileostomy - trend renal function - trend electrolytes, correct as needed 12/13: Cr improving with current treatment. (4) Malignant neoplasm of esophagus: Qualifiers: Malignant neoplasm of esophagus location: unspecified location Qualified Code(s): C15.9 - Malignant neoplasm of esophagus, unspecified Code(s): C15.9 - Malignant neoplasm of esophagus, unspecified Status: Acute Assessment and Plan: - on hospice, may be revoked due to current admission - care coordination consult for arrangement of TPN outpatient/current options - last chemo/radiation in October of 2022 - received Oncology care at [facility] Plan Patient here with recurrent dehydration, malnutrition, and VEDA. Recently admitted at [facility] from 11/13 to 11/18 for same. TPN supposed to be coordinated with hospice outpatient, having difficulty increasing the calories per back due to requiring lab work weekly. Patient amendable to being on palliative care and not on hospice care. Diet: TPN GI Prophylaxis: Not currently indicated DVT Prophylaxis: continue Xarelto Lines: Power Port to R chest, PICC line to LUE Code Status: DNR DS: Summary Hospital Course Reason for hospitalization: VEDA Hospital Course: 62 y/o M presents here with concerns for dehydration and malnutrition with PMH of esophageal cancer (s/p resection, 2017) with met/mass to mesentery (s/p resection with ileostomy, 08/2023, 200 cm of bowel proximal to stoma), short gut syndrome (secondary to resection), DVTs on Xarelto, bacteremia (08/2023), HTN (resolved with ileostomy), osteomyelitis L5, and severe chronic malnutrition. 12/13: Very pleasant gentleman here with dehydration. Labs are improving with hydration. Care coordination is looking for a provider to sign for his TPN at discharge. Patient reports no complaints to be but nursing contacted me after seeing him and he is saying he is having some LLQ abdominal pain. Will check a KUB. He has metastatic cancer and I suspect this is the source of his pain. Will add oxycodone for pain. 12/14: No
[2023-12-18 14:58] VITALS: BP 111/76; PULSE 74; RESP 12; TEMP 36.6; O2SAT 99
[2023-12-18] MEDS: HEPARIN SODIUM LOCK FLUSH 500 UNITS/5 ML SYRINGE IV PUSH (16:02)
== END 2023-12-18 16:20 | disposition home health service (06) | DRG 682 ==
LOC: ANHED 13:21 → ANH3MEDSUR 20:04
PROVIDERS: Family Medicine; Admitting Provider Internal Medicine; Emergency Provider Student in an Organized Health Care Education/Training Program; PCP Internal Medicine; Visit Provider Nurse Practitioner Acute Care
DX: N17.9 Acute kidney failure, unspecified (principal); E43 Unspecified severe protein-calorie malnutrition; E87.1 Hypo-osmolality and hyponatremia; K90.829 Short bowel syndrome, unspecified; R62.7 Adult failure to thrive; E86.0 Dehydration; I10 Essential (primary) hypertension; K21.9 Gastro-esophageal reflux disease without esophagitis; Z66 Do not resuscitate; Z68.22 Body mass index [BMI] 22.0-22.9, adult; Z86.718 Personal history of other venous thrombosis and embolism; Z85.01 Personal history of malignant neoplasm of esophagus; Z87.891 Personal history of nicotine dependence; Z79.01 Long term (current) use of anticoagulants; Z93.2 Ileostomy status
CPT/HCPCS: 36415; 71046; 74018; 80053; 81001; 82948; 83735; 84100; 84478; 85025; 85027; 85055; 93005; 99285; A9270; G0378; J1642; J7030; J7120